=== PATIENT | female | born 1945 | race Two or more races ===

== ENCOUNTER 2022-01-28 15:20 | Emergency (ER) | payer MEDICARE ==
[~2022-01-28 15:20] MED LIST: HYDR8TAB46 PO; METH10TA2 PO
== END 2022-01-28 16:00 | disposition left against medical advice (07) ==
LOC: ER 15:20
DX: I10 Essential (primary) hypertension (principal); Z53.21 Procedure and treatment not carried out due to patient leaving prior to being seen by health care provider